=== PATIENT | male | born 1975 | race African-American/Black ===

== ENCOUNTER 2020-07-14 16:38 | Emergency (ER) | payer OTHER ==
[~2020-07-14] VITALS: Ht 185.4 cm; Wt 78.0 kg
[2020-07-14 16:39] VITALS: BP 142/80
== END 2020-07-14 18:48 | disposition home or self-care (01) ==
LOC: ER 16:38
DX: R41.82 Altered mental status, unspecified (principal); Z63.4 Disappearance and death of family member; F12.90 Cannabis use, unspecified, uncomplicated
CPT/HCPCS: 99283

== ENCOUNTER 2020-08-16 11:07 | Emergency (ER) | payer MEDICAID, OTHER ==
[~2020-08-16] VITALS: Ht 185.4 cm; Wt 73.0 kg
[2020-08-16 11:10] VITALS: BP 126/97
[2020-08-16 12:11] LABS: BASOPHILS % 0.6 % (0.0-2.0); EOSINOPHILS % 1.5 % (0.0-5.0); HEMOGLOBIN. 14.8 g/dL (14.0-18.0); LYMPHOCYTES % 38.2 % (20.0-50.0); MEAN CORPUSCULAR HEMOGLOBIN 32.1 pg (28.0-32.0); MEAN CORPUSCULAR VOLUME 95.4 fL (80.0-94.0); MEAN PLATELET VOLUME 8.7 fl (7.4-10.4); MONOCYTES % 11.1 % (2.0-8.0); NEUTROPHILS % 48.6 % (40.0-76.0); PLATELET 228 x1000/uL (130-400); RED BLOOD CELL COUNT 4.61 mill/uL (4.7-6.1); RED CELL DISTRIBUTION WIDTH 15.1 % (11.6-14.6)
[2020-08-16] MEDS ORDERED: SODIUM CHLORIDE 0.9% 1,000 ML IV ONE (12:15)
[2020-08-16 12:20] LABS: CHLORIDE 107 mEq/L (98-107)
[2020-08-16 12:31] LABS: ETHANOL BLOOD 289 mg/dL
[2020-08-16 13:56] LABS: CLARITY URINE CLEAR (CLEAR); COLOR URINE YELLOW (YELLOW); KETONES URINE NEGATIVE (NEGATIVE); LEUKOCYTE ESTERASE URINE NEGATIVE (NEGATIVE); NITRITE URINE NEGATIVE (NEGATIVE); OCCULT BLOOD URINE NEGATIVE (NEGATIVE); PROTEIN URINE 1+ (NEGATIVE); SPECIFIC GRAVITY URINE 1.022 (1.005-1.030)
[2020-08-16 14:29] LABS: OPIATES URINE SCREEN NEGATIVE (NEGATIVE); PHENCYCLIDINE URINE SCREEN PRESUMTIVE POSITIVE (NEGATIVE)
[2020-08-16 14:30] LABS: *AMPHETAMINES SCREEN URINE NEGATIVE (NEGATIVE); *BARBITURATES SCREEN URINE NEGATIVE (NEGATIVE); *BENZODIAZEPINES SCREEN URINE NEGATIVE (NEGATIVE); *COCAINE SCREEN URINE PRESUMTIVE POSITIVE (NEGATIVE); CANNABINOID URINE SCREEN PRESUMTIVE POSITIVE (NEGATIVE); METHADONE URINE SCREEN NEGATIVE (NEGATIVE)
== END 2020-08-16 14:24 | disposition home or self-care (01) ==
LOC: ER 11:07
DX: F10.129 Alcohol abuse with intoxication, unspecified (principal); F14.10 Cocaine abuse, uncomplicated; F16.10 Hallucinogen abuse, uncomplicated; F12.10 Cannabis abuse, uncomplicated; Y90.8 Blood alcohol level of 240 mg/100 ml or more
CPT/HCPCS: 36415; 80053; 80305; 80320; 81003; 85025; 93005; 99284; G0480

== ENCOUNTER 2020-12-01 23:00 | Emergency (ER) | payer OTHER ==
[~2020-12-01] VITALS: Ht 182.9 cm; Wt 85.0 kg
[2020-12-02] MEDS ORDERED: NALOXONE HCL 0.4 MG/ML 1ML VIAL IV PRN
[2020-12-02] MEDS ORDERED: SODIUM CHLORIDE 0.9% 1,000 ML IV ONE
[2020-12-02 00:15] LABS: BASOPHILS % 0.9 % (0.0-2.0); EOSINOPHILS % 0.6 % (0.0-5.0); HEMOGLOBIN. 13.3 g/dL (14.0-18.0); LYMPHOCYTES % 19.9 % (20.0-50.0); MEAN CORPUSCULAR VOLUME 96.8 fL (80.0-94.0); MEAN PLATELET VOLUME 8.4 fl (7.4-10.4); MONOCYTES % 14.1 % (2.0-8.0); NEUTROPHILS % 64.5 % (40.0-76.0); PLATELET 199 x1000/uL (130-400); RED BLOOD CELL COUNT 4.03 mill/uL (4.7-6.1)
[2020-12-02 00:29] LABS: CHLORIDE 118 mEq/L (98-107)
[2020-12-02 00:33] LABS: ETHANOL BLOOD 115 mg/dL
[2020-12-02] MEDS ORDERED: POTASSIUM CHLORIDE 20MEQ TABLET SR PO ONE ×2 (00:45→01:15)
[2020-12-02 00:56] LABS: BG BASE EXCESS 0.4 mmol/L (-2.0-2.0); BG DEOXYHEMOGLOBIN 4.1 % (0.0-5.0); BG HCO3 ACT 25.4 mmol/L (22.0-26.0); BG METHEMOGLOBIN 0.2 % (0.0-1.5); BG OXYGEN SATURATION 95.8 % (92.0-98.5); BG OXYHEMOGLOBIN 92.7 % (94.0-97.0); BG PCO2 42.7 mmHg (35.0-45.0); BG PH 7.393 (7.350-7.450); BG SAMPLE SITE LEFT RADIAL; BG TOTAL HEMOGLOBIN 12.5 g/dL (12.0-18.0); BG VENT MODE ROOM AIR
[2020-12-02 01:12] LABS: CLARITY URINE CLEAR (CLEAR); COLOR URINE YELLOW (YELLOW); KETONES URINE TRACE (NEGATIVE); LEUKOCYTE ESTERASE URINE NEGATIVE (NEGATIVE); NITRITE URINE NEGATIVE (NEGATIVE); OCCULT BLOOD URINE NEGATIVE (NEGATIVE); PROTEIN URINE TRACE (NEGATIVE)
[2020-12-02 01:32] LABS: *AMPHETAMINES SCREEN URINE NEGATIVE (NEGATIVE); *BARBITURATES SCREEN URINE NEGATIVE (NEGATIVE); *BENZODIAZEPINES SCREEN URINE NEGATIVE (NEGATIVE); *COCAINE SCREEN URINE PRESUMTIVE POSITIVE (NEGATIVE); METHADONE URINE SCREEN NEGATIVE (NEGATIVE); OPIATES URINE SCREEN NEGATIVE (NEGATIVE); PHENCYCLIDINE URINE SCREEN PRESUMTIVE POSITIVE (NEGATIVE)
[2020-12-02 01:33] LABS: CANNABINOID URINE SCREEN PRESUMTIVE POSITIVE (NEGATIVE)
[2020-12-02 02:00] VITALS: BP 106/68
== END 2020-12-02 03:10 | disposition home or self-care (01) ==
LOC: EDUNIT# 23:00 → EDBD 23:00 → ER 23:00
DX: F10.129 Alcohol abuse with intoxication, unspecified (principal); Y90.5 Blood alcohol level of 100-119 mg/100 ml; F19.10 Other psychoactive substance abuse, uncomplicated; F14.10 Cocaine abuse, uncomplicated; F17.290 Nicotine dependence, other tobacco product, uncomplicated
CPT/HCPCS: 36415; 36600; 70450; 80053; 80305; 80307; 80320; 80329; 81003; 82140; 82375; 82805; 85025; 93005; 96361; 96374; 99285; J2310; J7030; G0480

== ENCOUNTER 2021-12-12 21:20 | Emergency (ER) | payer MEDICAID, OTHER ==
[~2021-12-12] VITALS: Ht 185.4 cm; Wt 73.0 kg
[2021-12-12 21:26] VITALS: BP 143/95
== END 2021-12-12 22:23 | disposition home or self-care (01) ==
LOC: ER 21:20
DX: Z04.3 Encounter for examination and observation following other accident (principal); R03.0 Elevated blood-pressure reading, without diagnosis of hypertension; F17.210 Nicotine dependence, cigarettes, uncomplicated; F16.10 Hallucinogen abuse, uncomplicated; F12.10 Cannabis abuse, uncomplicated; F10.10 Alcohol abuse, uncomplicated; Z71.6 Tobacco abuse counseling; Y90.9 Presence of alcohol in blood, level not specified
CPT/HCPCS: 99283; 99406